=== PATIENT | female | born 1975 | race Caucasian/White ===

== ENCOUNTER 2018-06-25 07:10 | Inpatient (IN) | payer BC ==
[2018-06-25] MEDS ORDERED: Scopolamine 1.5 MG Transdermal Patch TRDERM ONE (07:15)
[2018-06-25] MEDS ORDERED: Gabapentin 300 MG Cap PO ONE (07:15)
[2018-06-25] MEDS ORDERED: Acetaminophen 500 MG Tab PO ONE (07:15)
[2018-06-25] MEDS ORDERED: Celecoxib 200 MG Cap PO ONE (07:15)
[2018-06-25] MEDS ORDERED: fentaNYL 250 MCG/5 ML SDV ONE (07:30)
[2018-06-25] MEDS ORDERED: Glycopyrrolate 0.2 MG/ML 5 ML MDV ONE (07:31)
[2018-06-25] MEDS ORDERED: Dexamethasone 4 MG/ML SDV ONE (07:31)
[2018-06-25] MEDS ORDERED: Rocuronium 50 MG/5 ML Vial ONE (07:31)
[2018-06-25] MEDS ORDERED: Neostigmine Methylsulfate 1 MG/ML 5 ML Syringe ONE (07:31)
[2018-06-25] MEDS ORDERED: Ondansetron 4 MG/2 ML SDV ONE (07:31)
[2018-06-25] MEDS ORDERED: Propofol 200 MG/20 ML SDV ONE (07:31)
[2018-06-25] MEDS ORDERED: Dextrose 5%-Lactated Ringers 1,000 ML IV SCH (07:45)
[2018-06-25] MEDS ORDERED: cefOXitin 2 GM Vial ONE (08:40)
[2018-06-25] MEDS ORDERED: cefOXitin 2 GM in Sodium Chloride 0.9% 50 ML IV ONE ×4 (09:15)
[2018-06-25] MEDS ORDERED: Lidocaine 2% 100 MG/5 ML Syringe IVPUSH SCH (09:30)
[2018-06-25] MEDS ORDERED: Lidocaine 0.4%/D5W 2 GM/500 ML BAG IV SCH (09:30)
[2018-06-25] MEDS ORDERED: Ketamine 500 MG/5 ML MDV IV SCH (09:30)
[2018-06-25] MEDS ORDERED: Ropivacaine 53 ML, Dexamethasone 8 MG, EPINEPHrine 0.4 MG, Sodium Chloride 0.9% 24.6 ML NERVRT SCH ×4 (09:30)
[2018-06-25] MEDS ORDERED: Lactated Ringers 1,000 ML ONE (10:12)
[2018-06-25] MEDS ORDERED: fentaNYL 100 MCG/2 ML SDV ONE (11:03)
[2018-06-25] MEDS ORDERED: Ondansetron 4 MG/2 ML SDV IVPUSH PRN (14:00)
[2018-06-25] MEDS ORDERED: SCOPOLAMINE PATCH CHECK TOP SCH (14:00)
[2018-06-25] MEDS ORDERED: Labetalol 20 MG/4 ML Syringe IVPUSH PRN (14:00)
[2018-06-25] MEDS ORDERED: hydrOXYzine HCl 100 MG/2 ML SDV IM PRN (14:00)
[2018-06-25] MEDS ORDERED: Metoclopramide 10 MG/2 ML SDV IVPUSH PRN (14:00)
[2018-06-25] MEDS ORDERED: diphenhydrAMINE 50 MG/ML SDV IVPUSH PRN (14:00)
[2018-06-25] MEDS: Gabapentin 250 MG/5 ML Solution ML 470 ML Bottle PO SCH ×2 (14:33→21:19)
[2018-06-25] MEDS: cefOXitin 2 GM in Sodium Chloride 0.9% 50 ML IV SCH ×2 (15:29→21:20)
[2018-06-25] MEDS ORDERED: MVI, Adult with Vitamin K 10 ML, Thiamine 200 MG, Chromium/Copper/Mang/Selen/Zn 1 ML in... IV SCH ×4 (16:00)
[2018-06-25] MEDS ORDERED: Pantoprazole 40 MG Vial IVPUSH SCH (16:00)
[2018-06-25] MEDS: Acetaminophen Soln 650 MG/20.3 ML UD Cup PO SCH ×2 (16:27→21:19)
[2018-06-25] MEDS: Heparin Sodium 5,000 Units/ML Vial SUBCUT SCH (17:39)
[2018-06-25] MEDS ORDERED: HYDROmorphone 1 MG/ML Syringe IVPUSH PRN (19:20)
[2018-06-25] MEDS: Dextrose 5%-Lactated Ringers 1,000 ML IV SCH (21:20)
[2018-06-26] MEDS: cefOXitin 2 GM in Sodium Chloride 0.9% 50 ML IV SCH (03:15)
[2018-06-26] MEDS ORDERED: Iohexol 647 MG/ML 50 ML SDV PO STA (03:17)
[2018-06-26] MEDS: Acetaminophen Soln 650 MG/20.3 ML UD Cup PO SCH ×4 (04:07→21:03)
[2018-06-26] MEDS: Dextrose 5%-Lactated Ringers 1,000 ML IV SCH (05:23)
[2018-06-26] MEDS: Heparin Sodium 5,000 Units/ML Vial SUBCUT SCH ×2 (05:25→17:31)
[2018-06-26] MEDS: Celecoxib 200 MG Cap PO SCH (08:02)
[2018-06-26] MEDS ORDERED: HYDROmorphone 2 MG Tab PO PRN (08:17)
[2018-06-26] MEDS ORDERED: Dextrose 5%-Lactated Ringers 1,000 ML IV SCH (08:30)
[2018-06-26] MEDS ORDERED: [UNRECOGNIZED DRUG - REMARK] TOP SCH (09:00)
--- NOTE | 2018-06-26 09:04 | CR ---
UGI wo KUB HISTORY: eval R -Y GBP FINDINGS: After administration of oral contrast, upright views were obtained. Post operative changes gastric bypass. Surgical drains in place. No evidence for leak. Contrast passes freely into proximal small bowel loops. IMPRESSION: No evidence for leak or obstruction.
[2018-06-26] MEDS: Gabapentin 250 MG/5 ML Solution ML 470 ML Bottle PO SCH ×3 (10:31→21:03)
[2018-06-26] MEDS ORDERED: MVI, Adult with Vitamin K 10 ML, Thiamine 200 MG, Chromium/Copper/Mang/Selen/Zn 1 ML in... IV SCH ×4 (16:00)
--- NOTE | 2018-06-26 16:13 | PN ---
DATE OF SERVICE: 06/26/2018 SUBJECTIVE: The patient is postop day #1 from a duodenal switch along with hiatal hernia repair. Clinically, she is doing well at this point. Tolerating liquids well and upper GI looks good. She had some blurred vision last night, which stopped after the lidocaine was discontinued. Otherwise, pain control appears to be fairly good. We offered some oral Dilaudid in addition if necessary, otherwise go up to a step-2 diet, back down on IV rate. She will likely be ready for home tomorrow. Jhonathan Ferreira MD /[id number]
[2018-06-26] MEDS ORDERED: Pantoprazole 40 MG Delayed-Release Granules 1 Packet PO SCH (16:30)
[2018-06-27] MEDS: Heparin Sodium 5,000 Units/ML Vial SUBCUT SCH (05:06)
[2018-06-27] MEDS: Acetaminophen Soln 650 MG/20.3 ML UD Cup PO SCH ×2 (05:06→11:27)
[2018-06-27] MEDS: Celecoxib 200 MG Cap PO SCH (08:22)
[2018-06-27] MEDS: Gabapentin 250 MG/5 ML Solution ML 470 ML Bottle PO SCH ×2 (08:22→14:39)
[2018-06-27] MEDS ORDERED: Cyanocobalamin (Vitamin B12) 1,000 MCG/ML SDV IM ONE (09:00)
--- NOTE | 2018-06-27 09:32 | DISCH ---
ADMISSION DIAGNOSES: 1. Morbid obesity, BMI 41.6. 2. Left knee pain. DISCHARGE DIAGNOSES: Laparoscopic duodenal switch, liver biopsy, repair of paraesophageal hernia with mesh for morbid obesity, hepatomegaly and diaphragmatic hernia. Surgeon is Jhonathan Ferreira MD. Date of surgery on 06/25/2018. HISTORY: Goldie Dennis is a 42-year-old female with longstanding history of morbid obesity. After discussion of possible risks and possible complications, she wished to proceed with surgical procedure. HOSPITAL COURSE: Goldie had her surgery on 06/25/2018. She had no operative complications. On postoperative day #1, she was started on step 2 gastric bypass diet. She received dietary instruction. On postoperative day #2, her vital signs were stable. Activity was good. Oral intake adequate. She had a vitamin B12, 1000 mcg injection and she was able to be discharged to home. PHYSICAL EXAMINATION: GENERAL: Goldie is a pleasant 42-year-old female. VITAL SIGNS: Height is 5 feet 2 inches. Weight is 227 pounds and 3.2 ounces. BMI is 41.6. TPR is 98.3, 84, 15, blood pressure 129/89. HEENT: Negative. NECK: Supple. HEART: Regular rate and rhythm. LUNGS: Clear. ABDOMEN: Incisions look good, 4x4 over MARIBELL drain. Abdominal binder is on. EXTREMITIES: Without peripheral edema. DISPOSITION: Discharged to home. CONDITION: Stable and improving. FOLLOWUP APPOINTMENT: With Guadalupe Landry PA-C on 07/04/2018 at [address] [facility]. HOME MEDICATIONS: 1. Tylenol 650 mg chewable or liquid every 6 hours. 2. Celebrex 200 mg oral daily, #14. 3. Zofran ODT 4 mg q.6 hours p.r.n. nausea, #30. 4. Sudafed 30 mg as directed. 5. She is to stop all her vitamins and supplements until first postoperative appointment. DISCHARGE DIET: Diet after discharge is step 2 gastric bypass diet with no cereal for 4 weeks until 07/23/2018. ACTIVITY: No lifting greater than 10 pounds for 2 weeks. Walk at least 6 times inside your house a day. Driving, do not drive for 1 week. May shower. DISCHARGE INSTRUCTIONS: Notify provider if any fever, increased pain, nausea, or vomiting. Wound incision care, keep site clean and dry. Wear abdominal binder for 2 weeks and as tolerated. SPECIAL INSTRUCTION: Use incentive spirometer 10 times every hour while awake. Keep check of your protein and fluid intake and bring to clinic appointments.
--- NOTE | 2018-07-02 13:31 | OR ---
DATE OF PROCEDURE: 06/25/2018 PREOPERATIVE DIAGNOSIS: Morbid obesity. POSTOPERATIVE DIAGNOSES: 1. Morbid obesity. 2. Marked hepatomegaly. 3. Paraesophageal diaphragmatic hernia. PROCEDURE PERFORMED: 1. Laparoscopic duodenal switch (81080). 2. Ike-Cut needle liver biopsy (61616). 3. Repair of paraesophageal diaphragmatic hernia with mesh (63995). ANESTHESIA: General. ROPING TENDER: Guadalupe Landry PA-C. INDICATIONS FOR PROCEDURE: This is a 42-year-old female presenting with longstanding morbid obesity. After preop evaluation and discussion, she wished to proceed with a duodenal switch. The plan is to continue with a duodenal switch. Potential risks of the procedure including bleeding, infection, leaks from various GI tract closures, possible bowel obstruction over time, as well as the possibility of cardiopulmonary, septic, or hemorrhagic complications leading to were discussed, and the patient wishes to proceed. DETAILS OF PROCEDURE: The patient was taken to the operating room and placed in a supine position after general endotracheal anesthesia was induced. She was converted to a lithotomy position and the abdomen prepped and draped. At 15 cm inferior and 5 cm left of xiphoid process transverse incision was made and peritoneal cavity entered under direct vision with an Optiview trocar, inflated to 15 mmHg pressure with CO2. Laparoscope was reinserted. No underlying trocar insertion site injuries were seen. Following this, 6 additional trocars were placed across the upper mid abdomen. Transverse abdominis plane blocks were then placed bilaterally and the upper abdomen examined. The patient was noted to have marked hepatomegaly with liver being grossly fatty infiltrated and a Ike-Cut needle biopsy obtained from left lobe of liver. Minimal bleeding from the biopsy site was controlled with electrocautery. At this point, the area of the diaphragmatic hiatus was examined. The patient was noted to have a moderate-sized paraesophageal diaphragmatic hernia. The peritoneum anterior to this was then excised after reduction of the hernia and along the sides of the esophagus adjacent to each crura was dissected as well with Harmonic scalpel. This allowed dissection behind the esophagus and crural repair was accomplished posteriorly with 0 Ethibond sutures reinforced with PTFE pledgets. This was a fairly large diaphragmatic hernia and this was felt to be best repaired with a mesh reinforcement to facilitate a more solid scar formation at the crural repair. A Phasix mesh was then cut such that it covered over the crural repair and slightly along the crura on each side and was fixed in position with some titanium tacking screws. This mesh had a non-adherent surface on one side, which was placed against the esophagus. At this point, the omentum was divided away from the greater curvature of stomach being on the mid greater curvature with Harmonic scalpel. This was continued up to and through the short gastric vessels including the highest and posterior short gastric vessels. The dissection was then continued distally to a point roughly 4 cm distal to the pylorus along the duodenum. The duodenum was then encircled at that point just below the gastroduodenal artery roughly 4 cm distal to the pyloric stent and it was divided with a TAMARA barba load. The sleeve gastrectomy phase of the procedure was then initiated with marking of the anterior aspect of the stomach beginning 6 cm proximal to the pylorus. This was marked then underneath the incisura angularis to avoid overtightening of that area. Once this was marked out with electrocautery, the division of the stomach was initiated, again 6 cm proximal to the pylorus with TAMARA black loads, continued up to a point to the left of the incisura angularis. Following this, a 40-Grenadian chest tube was placed orally, and then positioned along the lesser curvature of the stomach and into the area of the divided aspect of the antrum. The remainder of the gastrectomy was then accomplished along the edges of the chest tube with combination of reinforced black and purple loads, and the sleeve gastrectomy specimen then taken off toward the left lower quadrant where it was subsequently retrieved at the end of the procedure. At this point, the small bowel was identified at the ileocecal valve and traced back 300 cm distal to that point. This was easily brought up to the divided duodenum. Initial stay stitches between the superior aspect of the duodenum and the small bowel at that level were placed with a 3-0 Vicryl stitch and then a second stitch along the inferior aspect of the divided area close to the adjacent small bowel was also then placed. Duodenostomy and enterotomy were then performed and a TAMARA barba load was then positioned with one limb in each of the aspects of the area of the duodenoileostomy and a 3 cm staple line accomplished. This was then closed transversely with a TAMARA purple load. Anastomosis was reinforced with fibrin sealant, as was the sleeve gastrectomy staple line. A leak test was accomplished with injection of air into the chest tube while the small bowel was compressed. Air was noted to flow across the pylorus. With antibiotic solution being placed along the staple lines, no leaks were noted. At that point, no further problems were noted. The gastric specimen had been retrieved. A single Dominic-Mars drain was placed through the left lateral trocar site and positioned adjacent to the gastroesophageal junction and the remaining trocars were removed, peritoneal cavity deflated, incisions were closed with some 4-0 Vicryl skin stitch. It is notable that the mesentery of the small bowel was quite thickened and this made the anastomosis between the small bowel highly unsafe, so we at this point decided to allow the procedure to be a staged procedure with subsequent enteroenterostomy to be completed as needed in the future. Physician stonecutter assistant, Guadalupe Landry, played an essential role in assisting in this case, helping to position the patient, suturing and cutting sutures when indicated, and retracting structures as indicated. Her presence improved patient safety and decreased the operative time. Jhonathan Ferreira MD /[id number]
== END 2018-06-27 15:17 | disposition home or self-care (01) | DRG 403 ==
LOC: JP.SDS 07:10 → JP.MS 07:10 → EDSTATUS 12:00 → JP.2SS 12:15
PROVIDERS: ADMIT Surgery; ATTEND Surgery
PROC: 0D194ZB Bypass Duodenum to Ileum, Percutaneous Endoscopic Approach (ICD-10-PCS; principal; 2018-06-25)
PROC: 0DB64Z3 Excision of Stomach, Percutaneous Endoscopic Approach, Vertical (ICD-10-PCS; 2018-06-25)
PROC: 0FB24ZX Excision of Left Lobe Liver, Percutaneous Endoscopic Approach, Diagnostic (ICD-10-PCS; 2018-06-25)
PROC: 0BQT4ZZ Repair Diaphragm, Percutaneous Endoscopic Approach (ICD-10-PCS; 2018-06-25)
PROC: 3E0M45Z Introduction of Adhesion Barrier into Peritoneal Cavity, Percutaneous Endoscopic Approach (ICD-10-PCS; 2018-06-25)
PROC: 3E0T3BZ Introduction of Anesthetic Agent into Peripheral Nerves and Plexi, Percutaneous Approach (ICD-10-PCS; 2018-06-25)
DX: E66.01 Morbid (severe) obesity due to excess calories (principal); R16.0 Hepatomegaly, not elsewhere classified; Z68.42 Body mass index [BMI] 45.0-49.9, adult; K44.9 Diaphragmatic hernia without obstruction or gangrene; M25.562 Pain in left knee; N39.3 Stress incontinence (female) (male); H53.8 Other visual disturbances; Z79.899 Other long term (current) drug therapy; K63.89 Other specified diseases of intestine
CPT/HCPCS: 36415; 74240; 74240-26; 81025; 82962; 86850; 86900; 86901; 88307; 88313; A9270-GY; C1781; C9113; J0171; J0694; J1100; J1170; J1644; J2001; J2405; J2704; J2710; J2795; J3010; J3410; J3411; J3420; J3490; J7030; J7042; J7050; J7120; Q9967

== ENCOUNTER 2023-05-22 21:15 | Emergency (ER) | payer BC ==
[2023-05-22 23:49] LABS: APPEARANCE,URINE CLEAR (CLEAR); BILIRUBIN,URINE NEGATIVE (NEGATIVE); COLOR,URINE YELLOW (YELLOW); GLUCOSE,URINE NEGATIVE (NEGATIVE); KETONES,URINE 15 mg/dL (NEGATIVE); LEUKOCYTE ESTERASE,URINE NEGATIVE (NEGATIVE); NITRITE,URINE NEGATIVE (NEGATIVE); OCCULT BLOOD,URINE TRACE-LYSED (NEGATIVE); PROTEIN,URINE NEGATIVE (NEGATIVE); UROBILINOGEN,URINE 0.2 EU/dL (0.2-1.0)
[2023-05-22 23:56] LABS: AMORPHOUS SEDIMENT,URINE NOT SEEN; BACTERIA,URINE MODERATE; EPITHELIAL CELLS,URINE FEW; MUCUS,URINE FEW; RBC,URINE 0-5 (0-5); WBC,URINE 0-5 (0-5)
[2023-05-22 23:59] LABS: ALANINE AMINOTRANSFERASE,ALT 27 U/L (12-78); ALBUMIN 3.8 g/dL (3.4-5.0); ALKALINE PHOSPHATASE 111 U/L (46-116); ANION GAP 13.7 mmol/L (5.0-14.0); ASPARTATE AMNIOTRANSFERASE,AST 21 U/L (15-37); BILIRUBIN TOTAL 0.2 mg/dL (0.2-1.0); BLOOD UREA NITROGEN,BUN 8 mg/dL (7-18); CALCIUM 8.7 mg/dL (8.5-10.1); CARBON DIOXIDE,CO2 25 mmol/L (21-32); CHLORIDE,CL 104 mmol/L (100-108); CREATININE 2.6 mg/dL (0.6-1.0); EST CRCL DRUG DOSING (CG) 20.93 mL/min; ESTIMATED GFR 22 mL/min (>60); GLUCOSE RANDOM 124 mg/dL (74-106); POTASSIUM,K 3.7 mmol/L (3.6-5.2); PROTEIN TOTAL,TP 7.6 g/dL (6.4-8.2); SODIUM,NA 139 mmol/L (140-148)
[2023-05-23 00:01] LABS: AMPHETAMINES SCREEN, URINE NEGATIVE (NEGATIVE); BARBITURATE SCREEN,URINE NEGATIVE (NEGATIVE); BENZODIAZEPINES SCREEN,URINE NEGATIVE (NEGATIVE); METHADONE SCREEN, URINE NEGATIVE (NEGATIVE); METHAMPHETAMINES SCREEN, URINE NEGATIVE (NEGATIVE); OXYCODONE SCREEN,URINE NEGATIVE (NEGATIVE); PROPOXYPHENE SCREEN,URINE NEGATIVE (NEGATIVE); THC SCREEN,URINE 50 NG/ML NEGATIVE (NEGATIVE)
[2023-05-23 00:05] LABS: BASOPHILS ABSOLUTE AUTO 0.05 K/uL (0.00-0.10); BASOPHILS PERCENT AUTO 0.6 % (0.1-1.3); EOSINOPHILS PERCENT AUTO 0.2 % (0.0-5.4); HEMATOCRIT 44.3 % (34.3-46.0); HEMOGLOBIN 14.6 g/dL (11.2-15.5); IMMATURE GRAN ABSOLUTE AUTO 0.13 K/uL (0.00-0.23); IMMATURE GRAN PERCENT AUTO 1.5 % (0.0-0.7); LYMPHOCYTES ABSOLUTE AUTO 1.66 K/uL (0.8-3.3); LYMPHOCYTES PERCENT AUTO 19.2 % (11.4-47.7); MEAN CORPUSCULAR HEMOGLOBIN 29.1 pg (31.6-35.5); MEAN CORPUSCULAR VOLUME 88.2 fL (81.4-99.0); MONOCYTES ABSOLUTE AUTO 0.68 K/uL (0.20-0.90); MONOCYTES PERCENT AUTO 7.9 % (3.3-12.6); NEUTROPHILS ABSOLUTE AUTO 6.11 K/uL (1.0-7.6); NEUTROPHILS PERCENT AUTO 70.6 % (40.0-78.1); PLATELET COUNT,PLT 330 K/uL (130-375); RED BLOOD CELL COUNT 5.02 M/uL (3.77-5.24); WHITE BLOOD CELL COUNT,WBC 8.7 K/uL (3.2-11.0)
[2023-05-23 00:06] LABS: EOSINOPHILS ABSOLUTE AUTO 0.02 K/uL (0.00-0.40)
== END 2023-05-23 00:35 | disposition home or self-care (01) ==
LOC: JP.ED 21:15
DX: S62.102A Fracture of unspecified carpal bone, left wrist, initial encounter for closed fracture (principal); W19.XXXA Unspecified fall, initial encounter
CPT/HCPCS: 36415; 73110-26-LT; 73110-LT; 73120-26-LT; 73120-LT; 80053; 80305-QW; 80307; 81001; 85025; 99283

== ENCOUNTER 2023-06-16 06:23 | Day surgery (SDC) | payer BC ==
[2023-06-16 06:45] LABS: HEMATOCRIT 38.3 % (34.3-46.0); HEMOGLOBIN 13.2 g/dL (11.2-15.5); MEAN CORPUSCULAR HEMOGLOBIN 29.9 pg (31.6-35.5); MEAN CORPUSCULAR HGB CONC 34.5 g/dL (31.6-35.5); MEAN CORPUSCULAR VOLUME 86.8 fL (81.4-99.0); RED BLOOD CELL COUNT 4.41 M/uL (3.77-5.24)
[2023-06-16] MEDS ORDERED: Nozin Nasal Sanitizer NASBOTH ONE (06:45)
[2023-06-16] MEDS ORDERED: Bupivacaine 0.5% 30 ML SDV ONE (06:53)
[2023-06-16 07:00] LABS: CALCIUM 8.5 mg/dL (8.5-10.1); CREATININE 0.8 mg/dL (0.6-1.0); POTASSIUM,K 3.7 mmol/L (3.6-5.2)
[2023-06-16] MEDS ORDERED: Lactated Ringers 1,000 ML IV SCH (07:00)
[2023-06-16 07:04] LABS: ANION GAP 13.7 mmol/L (5.0-14.0); EST CRCL DRUG DOSING (CG) 68.02 mL/min
[2023-06-16] MEDS ORDERED: fentaNYL 100 MCG/2 ML SDV ONE ×3 (07:28→08:39)
[2023-06-16] MEDS ORDERED: Dexamethasone 4 MG/ML SDV ONE (07:28)
[2023-06-16] MEDS ORDERED: Ondansetron 4 MG/2 ML SDV ONE (07:28)
[2023-06-16] MEDS ORDERED: ceFAZolin 1 GM in Premix Bag 1 BAG IV ONE (07:30)
[2023-06-16] MEDS ORDERED: ceFAZolin 1 GM in Sodium Chloride 0.9% 50 ML IV ONE (07:30)
[2023-06-16] MEDS ORDERED: Propofol 200 MG/20 ML SDV ONE (08:02)
[2023-06-16] MEDS ORDERED: Ketorolac 30 MG/ML SDV IM ONE (10:15)
[2023-06-16] MEDS ORDERED: Acetaminophen/HYDROcodone 325-5 MG Tab PO PRN (10:16)
== END 2023-06-16 12:05 | disposition home or self-care (01) ==
LOC: JP.SDS 06:23
PROVIDERS: ATTEND Specialist
DX: S52.502P Unspecified fracture of the lower end of left radius, subsequent encounter for closed fracture with malunion (principal); E03.9 Hypothyroidism, unspecified; E66.9 Obesity, unspecified; G43.909 Migraine, unspecified, not intractable, without status migrainosus; D68.9 Coagulation defect, unspecified; Z79.890 Hormone replacement therapy; Z79.899 Other long term (current) drug therapy; Z79.01 Long term (current) use of anticoagulants
CPT/HCPCS: 25400; 36415; 80048; 81025; 85027; A9270; C1713; J0690; J1100; J1885; J2405; J2704; J3010; J3490; J7120